=== PATIENT | male | born 1975 | race Caucasian/White ===

== ENCOUNTER 2019-09-16 16:45 | Emergency (ER) | payer OTHER ==
[~2019-09-16] VITALS: Ht 175.3 cm; Wt 85.0 kg
[2019-09-16] MEDS ORDERED: oxyCODONE/APAP 5/325 1 TAB TABLET PO ONE (17:45)
--- NOTE | 2019-09-16 17:53 | PHYS DOC ---
Past Medical History Past Medical History: No Pertinent History (GRACE MALONE DO) Past Surgical History: Tonsillectomy Additional Past Surgical Histo: RT SHOULDER, RT HEEL (GRACE MALONE DO) Smoking Status: Current Some Day Smoker Alcohol Use: Occasionally (GRACE MALONE DO) General Adult EDM: Chief Complaint: GROIN PAIN HPI: HPI: Patient is a 44-year-old male presents with right testicular pain. He states this been ongoing for 1 week. He denies promiscuous sex. He denies any urethral discharge. He states he can feel something very hard and painful surrounding his right testicle. He denies any fever chills or sweats. He denies any dysuria or gross hematuria. He denies any trauma to the testicle. [] (GRACE MALONE DO) Review of Systems: Review of Systems: Constitutional: Denies fever or chills. [] Eyes: Denies change in visual acuity. [] HENT: Denies nasal congestion or sore throat. [] Respiratory: Denies cough or shortness of breath. [] Cardiovascular: Denies chest pain or edema. [] GI: Denies abdominal pain, nausea, vomiting, bloody stools or diarrhea. [] : Per HPI. [] Musculoskeletal: Denies back pain or joint pain. [] Integument: Denies rash. [] Neurologic: Denies headache, focal weakness or sensory changes. [] Endocrine: Denies polyuria or polydipsia. [] Lymphatic: Denies swollen glands. [] Psychiatric: Denies depression or anxiety. [] (GRACE MALONE DO) Heart Score: Risk Factors: Risk Factors: DM, Current or recent (<one month) smoker, HTN, HLP, family history of CAD, obesity. Risk Scores: Score 0 - 3: 2.5% MACE over next 6 weeks - Discharge Home Score 4 - 6: 20.3% MACE over next 6 weeks - Admit for Clinical Observation Score 7 - 10: 72.7% MACE over next 6 weeks - Early Invasive Strategies (GRACE MALONE DO) Current Medications: Current Medications Medications (Trade) Dose Ordered Sig/Sid Start Time Stop Time Status Last Admin Dose Admin Levofloxacin (Levaquin) 500 mg 1X ONCE 09/16/19 17:45 09/16/19 17:46 DC Oxycodone/ Acetaminophen (Percocet 5/325) 2 tab 1X ONCE 09/16/19 17:45 09/16/19 17:46 DC (GRACE MALONE DO) Allergies: Allergies: Allergies Coded Allergies Type Severity Reaction Last Updated Verified No Known Drug Allergies 09/16/19 No (GRACE MALONE DO) Physical Exam: PE: Constitutional: Well developed, well nourished, moderate distress, non-toxic appearance. [] HENT: Normocephalic, atraumatic, bilateral external ears normal, oropharynx m oist, no oral exudates, nose normal. [] Eyes: PERRLA, EOMI, conjunctiva normal, no discharge. [] Neck: Normal range of motion, no tenderness, supple, no stridor. [] Cardiovascular:Heart rate regular rhythm, no murmur [] Lungs & Thorax: Bilateral breath sounds clear to auscultation [] Abdomen: Bowel sounds normal, soft, no tenderness, no masses, no pulsatile masses. : Right testicle is tender to palp epididymis in particular feels swollen and is tender [] Skin: Warm, dry, no erythema, no rash. [] Back: No tenderness, no CVA tenderness. [] Extremities: No tenderness, no cyanosis, no clubbing, ROM intact, no edema. [] Neurologic: Alert and oriented X 3, normal motor function, normal sensory f unction, no focal deficits noted. [] Psychologic: Affect normal, judgement normal, mood normal. [] (GRACE MALONE DO) Current Patient Data: Vital Signs: Vital Signs Date Time Temp Pulse Resp B/P (MAP) Pulse Ox O2 Delivery O2 Flow Rate FiO2 09/16/19 17:14 98.3 62 16 129/83 (98) 97 Room Air 98.3 (GRACE MALONE DO) EKG: EKG: [] (GARCE MALONE DO) Radiology/Procedures: Radiology/Procedures: [] (GRACE MALONE DO) Impression: PROCEDURE: TESTICULAR/SCROTUM TESTICULAR/SCROTUM: 09/16/2019 5:37 PM INDICATION: 44 years old Male. Reason: right testicular pain / Spl. Instructions: / History: . COMPARISON: None. FINDINGS: Right: Testicle: Normal in echotexture without focal lesion. Size: 4.3 x 2.9 x 2.6 cm. Flow: Normal color Doppler flow pattern. Epididymis: Enlarged and hyperemic. Right-sided epididymal cysts are identified, at least one of which demonstrates minimal complexity measuring 5 mm. Hydrocele: None. Varicocele: None. Left: Testicle: Normal in echotexture without focal lesion. Size: 4.4 x 3.0 x 2.6 cm. Flow: Normal color Doppler flow pattern. Epididymis: Normal in size and echotexture without focal lesion. Hydrocele: None. Varicocele: None. IMPRESSION: 1. Enlarged hyperemic right epididymis suggestive of epididymitis. 2. Perfusion noted in the testicles bilaterally at the time of imaging. 3. Right-sided epididymal cysts, one of which demonstrate internal debris. Electronically signed by: Cassidy Forrest MD (09/16/2019 7:27 PM) [facility] (LAWANDA FRANKS Jr., DO) Course & Med Decision Making: Course & Med Decision Making Pertinent Labs and Imaging studies reviewed. (See chart for details) [] (GRACE MALONE DO) Dragon Disclaimer: Dragon Disclaimer: This electronic medical record was generated, in whole or in part, using a voice recognition dictation system. (GRACE MALONE DO) Departure Departure Impression: Primary Impression: Epididymitis Disposition: 01 HOME, SELF-CARE Condition: STABLE Referrals: NO PCP (PCP) Patient Instructions: Epididymitis Scripts Oxycodone/Apap 5-325 (PERCOCET 5-325 MG TABLET ) 1 Each Tablet 1-2 EACH PO PRN TID PRN for PAIN, #20 TAB pain Prov: LAWANDA FRANKS Jr. DO 09/16/19 Ondansetron (ONDANSETRON ODT) 4 Mg Tab.rapdis 1 TAB PO PRN Q6-8HRS PRN for NAUSEA, #15 TAB Prov: LAWANDA FRANKS Jr. DO 09/16/19 Levofloxacin (LEVAQUIN) 500 Mg Tablet 1 TAB PO DAILY for 10 Days, #10 TAB 0 Refills Prov: LAWANDA FRANKS Jr. DO 09/16/19 Justicifation of Admission Dx: Justifications for Admission: Justification of Admission Dx: Comment: (Not applicable) (LAWANDA FRANKS Jr., DO) GRACE MALONE DO Sep 16, 2019 17:53 LAWANDA FRANKS Jr. Sep 16, 2019 19:45
[2019-09-16 17:55] LABS: BILIRUBIN,URINE NEGATIVE (NEG); CLARITY,URINE CLEAR; COLOR,URINE YELLOW; NITRITE,URINE NEGATIVE (NEG); PH,URINE 5.5 (<5.0-8.0); PROTEIN,URINE NEGATIVE (NEG-TRACE); UROBILINOGEN,URINE 0.2 mg/dL (0.2 mg/dL)
[2019-09-16 18:04] LABS: BACTERIA,URINE 0 /HPF (0-FEW); RBC,URINE 0 /HPF (0-2); SQUAMOUS EPITHELIAL CELL,UR OCC /LPF; WBC,URINE 0 /HPF (0-4)
[2019-09-16 19:29] VITALS: BP 119/70
--- NOTE | 2019-09-16 19:30 | RAD ---
TESTICULAR/SCROTUM: 09/16/2019 5:37 PM INDICATION: 44 years old Male. Reason: right testicular pain / Spl. Instructions: / History: . COMPARISON: None. FINDINGS: Right: Testicle: Normal in echotexture without focal lesion. Size: 4.3 x 2.9 x 2.6 cm. Flow: Normal color Doppler flow pattern. Epididymis: Enlarged and hyperemic. Right-sided epididymal cysts are identified, at least one of which demonstrates minimal complexity measuring 5 mm. Hydrocele: None. Varicocele: None. Left: Testicle: Normal in echotexture without focal lesion. Size: 4.4 x 3.0 x 2.6 cm. Flow: Normal color Doppler flow pattern. Epididymis: Normal in size and echotexture without focal lesion. Hydrocele: None. Varicocele: None. IMPRESSION: 1. Enlarged hyperemic right epididymis suggestive of epididymitis. 2. Perfusion noted in the testicles bilaterally at the time of imaging. 3. Right-sided epididymal cysts, one of which demonstrate internal debris. Electronically signed by: Cassidy Forrest MD (09/16/2019 7:27 PM) JAMES
[2019-09-16] MEDS ORDERED: OXYC1TAB15 PO (19:44)
[2019-09-16] MEDS ORDERED: ONDA4TAB12 PO (19:44)
[2019-09-16] MEDS ORDERED: LEVO500T59 PO (19:44)
== END 2019-09-16 20:24 | disposition home or self-care (01) ==
LOC: ER 16:45
DX: N45.1 Epididymitis (principal); F17.200 Nicotine dependence, unspecified, uncomplicated
CPT/HCPCS: 76870; 81001; 87491; 87591; 99285-25

== ENCOUNTER 2019-10-27 02:11 | Emergency (ER) | payer OTHER ==
[~2019-10-27] VITALS: Ht 175.3 cm; Wt 81.8 kg
[~2019-10-27 02:11] MED LIST: LEVO500T59 PO; ONDA4TAB12 PO; OXYC1TAB15 PO
--- NOTE | 2019-10-27 02:51 | PHYS DOC ---
Past Medical History Additional Past Medical Histor: Vertigo, epididimitis Past Surgical History: Tonsillectomy Additional Past Surgical Histo: RT SHOULDER, RT HEEL Smoking Status: Current Some Day Smoker Alcohol Use: Occasionally Drug Use: None General Adult EDM: Chief Complaint: DIZZY/LIGHT HEADED HPI: HPI: 44-year-old male presents with report of dizziness, headache, and nausea this been ongoing intermittently for the last 4 to 5 weeks. Patient reports history of prior vertigo and reports symptoms similar to before. Reports sensation that the room is spinning ". Patient does report history of diagnosis of epididymitis for which he was prescribed Levaquin. Patient had discussed the dizziness/ Review of Systems: Review of Systems: Constitutional: Denies fever or chills. [] Eyes: Denies change in visual acuity. [] HENT: Denies nasal congestion or sore throat. [] Respiratory: Denies cough or shortness of breath. [] Cardiovascular: Denies chest pain or edema. [] GI: Denies abdominal pain, nausea, vomiting, bloody stools or diarrhea. [] : Denies dysuria. [] Musculoskeletal: Denies back pain or joint pain. [] Integument: Denies rash. [] Neurologic: Denies headache, focal weakness or sensory changes. [] Endocrine: Denies polyuria or polydipsia. [] Lymphatic: Denies swollen glands. [] Psychiatric: Denies depression or anxiety. [] Heart Score: Risk Factors: Risk Factors: DM, Current or recent (<one month) smoker, HTN, HLP, family history of CAD, obesity. Risk Scores: Score 0 - 3: 2.5% MACE over next 6 weeks - Discharge Home Score 4 - 6: 20.3% MACE over next 6 weeks - Admit for Clinical Observation Score 7 - 10: 72.7% MACE over next 6 weeks - Early Invasive Strategies Allergies: Allergies: Allergies Coded Allergies Type Severity Reaction Last Updated Verified No Known Drug Allergies 09/16/19 No Physical Exam: PE: Constitutional: Well developed, well nourished, no acute distress, non-toxic appearance. [] HENT: Normocephalic, atraumatic, bilateral external ears normal, oropharynx moist, no oral exudates, nose normal. [] Eyes: PERRLA, EOMI, conjunctiva normal, no discharge. [] Neck: Normal range of motion, no tenderness, supple, no stridor. [] Cardiovascular:Heart rate regular rhythm, no murmur [] Lungs & Thorax: Bilateral breath sounds clear to auscultation [] Abdomen: Bowel sounds normal, soft, no tenderness, no masses, no pulsatile masses. [] Skin: Warm, dry, no erythema, no rash. [] Back: No tenderness, no CVA tenderness. [] Extremities: No tenderness, no cyanosis, no clubbing, ROM intact, no edema. [] Neurologic: Alert and oriented X 3, normal motor function, normal sensory function, no focal deficits noted. [] Psychologic: Affect normal, judgement normal, mood normal. [] EKG: EKG: @0239 Sinus bradycardia at 52bpm, NO ST elevation, QRS 100ms, QT/QTc 436/411ms, baseline artifact to I-aVF Radiology/Procedures: Radiology/Procedures: PROCEDURE: CT HEAD WO CONTRAST INDICATION: Reason: dizziness, SAYS FEEL PRESSURE IN HEAD TOO / Spl. Instructions: / History: COMPARISON: None. TECHNIQUE: Axial CT images obtained through the head without intravenous contrast. One or more of the following individualized dose reduction techniques were utilized for this examination: 1. Automated exposure control; 2. Adjustment of the mA and/or kV according to patient size; 3. Use of iterative reconstruction technique. FINDINGS: No intracranial hemorrhage. There is some relative hyperdensity deep to the calvarium bilaterally most likely secondary to artifact. No midline shift. Basal cisterns patent. Ventricles and sulci are unremarkable. No acute osseous abnormality. Orbits and paranasal sinuses unremarkable. IMPRESSION: * No acute intracranial hemorrhage. Electronically signed by: Isaac Mahoney MD (10/27/2019 3:42 AM) [id number] Course & Med Decision Making: Course & Med Decision Making Pertinent Labs and Imaging studies reviewed. (See chart for details) [] Dragon Disclaimer: Dragon Disclaimer: This electronic medical record was generated, in whole or in part, using a voice recognition dictation system. Departure Departure Impression: Primary Impression: Vertigo Disposition: 01 HOME, SELF-CARE Condition: STABLE Referrals: NO PCP (PCP) GERMAINE MAHONEY MD Patient Instructions: Vertigo, [id number] Scripts Meclizine Hcl (MECLIZINE HCL) 25 Mg Tablet 1 TAB PO PRN TID PRN for DIZZINESS, #20 TAB Prov: JAVY GILL DO 10/27/19 Prednisone (PREDNISONE) 20 Mg Tablet 2 TAB PO DAILY, #8 TAB Start this prescription tomorrow, Sunday10/28/19 Prov: JAVY GILL DO 10/27/19 Justicifation of Admission Dx: Justifications for Admission: Justification of Admission Dx: N/A JAVY GILL DO Oct 27, 2019 02:51
[2019-10-27 03:30] LABS: BASO % 1 % (0-3); EOS # 0.3 x10^3/uL (0.0-0.7); EOS % 4 % (0-3); HEMATOCRIT 42.4 % (39.0-53.0); HEMOGLOBIN 14.6 g/dL (13.0-17.5); LYMPH % 31 % (24-48); MEAN CORPUSCULAR HEMOGLOBIN 32 pg (25-35); MEAN CORPUSCULAR HGB CONC 34 g/dL (31-37); MEAN CORPUSCULAR VOLUME 94 fL (79-100); MONO # 0.7 x10^3/uL (0.0-1.1); MONO % 11 % (0-9); NEUT # 3.6 x10^3/uL (1.8-7.7); NEUT % 54 % (31-73); PLATELET COUNT 154 x10^3/uL (140-400); RED BLOOD COUNT 4.51 x10^6/uL (4.30-5.70); RED CELL DISTRIBUTION WIDTH 12.6 % (11.5-14.5); WHITE BLOOD COUNT 6.7 x10^3/uL (4.0-11.0)
[2019-10-27 03:30] LABS: BILIRUBIN,URINE NEGATIVE (NEG); CLARITY,URINE CLEAR; COLOR,URINE YELLOW; NITRITE,URINE NEGATIVE (NEG); PH,URINE 5.5 (<5.0-8.0); PROTEIN,URINE NEGATIVE (NEG-TRACE); UROBILINOGEN,URINE 0.2 mg/dL (0.2 mg/dL)
[2019-10-27] MEDS ORDERED: MECLIZINE HCL 12.5 MG TABLET. PO ONE (03:30)
[2019-10-27] MEDS ORDERED: IV NORMAL SALINE 1000ML BAG 1,000 ML IV ONE (03:30)
[2019-10-27] MEDS ORDERED: DEXAMETHASONE SOD PHOS 4 MG/ML VIAL IVP ONE (03:30)
[2019-10-27 03:37] LABS: CALCIUM 8.9 mg/dL (8.5-10.1); CREATININE 1.2 mg/dL (0.7-1.3); GFR 66.1
[2019-10-27 03:39] LABS: BACTERIA,URINE 0 /HPF (0-FEW); RBC,URINE 0 /HPF (0-2); SQUAMOUS EPITHELIAL CELL,UR OCC /LPF; WBC,URINE 0 /HPF (0-4)
[2019-10-27 03:43] LABS: ALBUMIN 3.5 g/dL (3.4-5.0); ALBUMIN/GLOBULIN RATIO 1.1 (1.0-1.7); MAGNESIUM 2.2 mg/dL (1.8-2.4); TOTAL BILIRUBIN 0.5 mg/dL (0.2-1.0); TOTAL PROTEIN 6.6 g/dL (6.4-8.2)
--- NOTE | 2019-10-27 03:45 | RAD ---
INDICATION: Reason: dizziness, SAYS FEEL PRESSURE IN HEAD TOO / Spl. Instructions: / History: COMPARISON: None. TECHNIQUE: Axial CT images obtained through the head without intravenous contrast. One or more of the following individualized dose reduction techniques were utilized for this examination: 1. Automated exposure control; 2. Adjustment of the mA and/or kV according to patient size; 3. Use of iterative reconstruction technique. FINDINGS: No intracranial hemorrhage. There is some relative hyperdensity deep to the calvarium bilaterally most likely secondary to artifact. No midline shift. Basal cisterns patent. Ventricles and sulci are unremarkable. No acute osseous abnormality. Orbits and paranasal sinuses unremarkable. IMPRESSION: * No acute intracranial hemorrhage. Electronically signed by: Isaac Mahoney MD (10/27/2019 3:42 AM) [id number]
[2019-10-27] MEDS ORDERED: MECL-75 PO (03:48)
[2019-10-27] MEDS ORDERED: PRED20TA PO (03:48)
[2019-10-27 03:56] VITALS: BP 129/81
--- NOTE | 2019-10-28 07:09 | EKG ---
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
== END 2019-10-27 03:58 | disposition home or self-care (01) ==
LOC: ER 02:11
DX: R42 Dizziness and giddiness (principal); R51 Headache; R20.0 Anesthesia of skin; F17.200 Nicotine dependence, unspecified, uncomplicated; Z90.89 Acquired absence of other organs; Z98.890 Other specified postprocedural states
CPT/HCPCS: 36415; 70450; 80053; 81001; 82553; 83735; 84484; 85025; 93005; 96361; 96374; 99285; J1100; J7030; J8597

== ENCOUNTER 2019-10-31 22:50 | Emergency (ER) | payer OTHER ==
[~2019-10-31] VITALS: Ht 172.7 cm; Wt 72.7 kg
[~2019-10-31 22:50] MED LIST changes: +MECL-75 PO; +PRED20TA PO
--- NOTE | 2019-10-31 23:59 | PHYS DOC ---
Past Medical History Additional Past Medical Histor: Vertigo, epididimitis Past Surgical History: Tonsillectomy Additional Past Surgical Histo: RT SHOULDER, RT HEEL Smoking Status: Current Some Day Smoker Alcohol Use: Occasionally Drug Use: None General Adult EDM: Chief Complaint: DIZZY/LIGHT HEADED HPI: HPI: Patient is a 44 year old male who presents with complaints of vertigo and "an acidic feeling in my body". The patient is a very pleasant 44-year-old male who has suffered from vertigo for many years. Recently he had a episode of e pididymitis which required an extended course of antibiotics. Unfortunately did seem to tear up his stomach at the time and that he had a lot of GI issues with the medication. He is off the medicine now reports that he has some discomfort in his epigastrium described as feeling like there is too much acid in it. It is nonradiating and is not associated with diarrhea, nausea or vomiting, melena or hematochezia. He denies fever, chills, sweats, chest pain or shortness of breath. He does complain of a headache however. His headache is unilateral, left-sided and associated with some neck pain. It is throbbing in nature and is been present for weeks. It is associated with the vertigo. He also associates some phonophobia with it and has had nausea in the past. Patient denies any focal neurological changes. He does complain of bilateral ear pain but denied any tinnitus. Review of Systems: Review of Systems: Constitutional: Denies fever or chills. [] Eyes: Denies change in visual acuity. [] HENT: Denies nasal congestion or sore throat. [] Respiratory: Denies cough or shortness of breath. [] Cardiovascular: Denies chest pain or edema. [] GI: See HPI. [] : Denies dysuria. [] Musculoskeletal: Denies back pain or joint pain. [] Integument: Denies rash. [] Neurologic: See HPI. [] Endocrine: Denies polyuria or polydipsia. [] Lymphatic: Denies swollen glands. [] Psychiatric: Denies depression or anxiety. [] Heart Score: Risk Factors: Risk Factors: DM, Current or recent (<one month) smoker, HTN, HLP, family history of CAD, obesity. Risk Scores: Score 0 - 3: 2.5% MACE over next 6 weeks - Discharge Home Score 4 - 6: 20.3% MACE over next 6 weeks - Admit for Clinical Observation Score 7 - 10: 72.7% MACE over next 6 weeks - Early Invasive Strategies Allergies: Allergies: Allergies Coded Allergies Type Severity Reaction Last Updated Verified No Known Drug Allergies 09/16/19 No Physical Exam: PE: Constitutional: Well developed, well nourished, no acute distress, non-toxic appearance. [] HENT: Normocephalic, atraumatic, bilateral external ears normal, oropharynx moist, no oral exudates, nose normal. [] Eyes: PERRLA, EOMI, conjunctiva normal, no discharge. [] Neck: Normal range of motion, no tenderness, supple, no stridor. [] Cardiovascular:Heart rate regular rhythm, no murmur [] Lungs & Thorax: Bilateral breath sounds clear to auscultation [] Abdomen: Bowel sounds normal, soft, no tenderness, no masses, no pulsatile masses. [] Skin: Warm, dry, no erythema, no rash. [] Back: No tenderness, no CVA tenderness. [] Extremities: No tenderness, no cyanosis, no clubbing, ROM intact, no edema. [] Neurologic: Alert and oriented X 3, normal motor function, normal sensory function, no focal deficits noted. [] Psychologic: Affect normal, judgement normal, mood normal. [] EKG: EKG: [] Radiology/Procedures: Radiology/Procedures: [] Course & Med Decision Making: Course & Med Decision Making Pertinent Labs and Imaging studies reviewed. (See chart for details) 0159-patient was seen and reevaluated on multiple occasions about his hospitalization here in the emergency department. Patient has improved and that he feels his stomach improved and that he is no longer having that discomfort as he had in the past. In addition he reports that his headache has resolved. He thinks the vertigo is essentially unchanged. I discussed with him the treat ment plan, reasons to return and need for follow-up. At this time no evidence of an exigent medical or surgical problems identified. [] Dragon Disclaimer: Dragon Disclaimer: This electronic medical record was generated, in whole or in part, using a voice recognition dictation system. Departure Departure Impression: Primary Impression: Peripheral vertigo Qualified Codes: H81.399 - Other peripheral vertigo, unspecified ear Additional Impressions: Common migraine with intractable migraine, so stated Acute gastritis without mention of hemorrhage Disposition: HOME, SELF-CARE Condition: IMPROVED Referrals: UNKNOWN PCP NAME (PCP) Patient Instructions: Gastritis, Adult, Migraine Headache Scripts Omeprazole (OMEPRAZOLE) 40 Mg Capsule.dr 40 MG PO DAILY for 30 Days, #30 CAP Take 1/2-hour before the first meal the day Prov: LUIS FELIPE MCKEON MD 11/01/19 Justicifation of Admission Dx: Justifications for Admission: Justification of Admission Dx: N/A LUIS FELIPE MCKEON MD Oct 31, 2019 23:59
[2019-11-01] MEDS ORDERED: IV NORMAL SALINE 500ML BAG 500 ML IV ONE (00:30)
[2019-11-01] MEDS ORDERED: METOCLOPRAMIDE HCL 10 MG/2 ML VIAL. IVP ONE (00:45)
[2019-11-01] MEDS ORDERED: diphenhydrAMINE 50 MG/ML VIAL IVP ONE (00:45)
[2019-11-01] MEDS ORDERED: MAGNESIUM SULFATE 1GM 100 ML IV ONE (00:45)
[2019-11-01] MEDS ORDERED: FAMOTIDINE 20 MG TABLET. PO ONE (00:45)
[2019-11-01] MEDS ORDERED: KETOROLAC 30 MG/ML VIAL. IVP ONE (00:45)
[2019-11-01] MEDS ORDERED: MAG HYDROX/ALUMINUM HYD/SIMETH 30 ML ORAL.SUSP PO ONE (00:45)
[2019-11-01] MEDS ORDERED: OMEP40CA45 PO (02:02)
[2019-11-01 02:36] VITALS: BP 111/66
== END 2019-11-01 02:26 | disposition home or self-care (01) ==
LOC: ER 22:50
DX: H81.399 Other peripheral vertigo, unspecified ear (principal); G43.019 Migraine without aura, intractable, without status migrainosus; K29.00 Acute gastritis without bleeding; F17.200 Nicotine dependence, unspecified, uncomplicated
CPT/HCPCS: 96365; 96375; 99285; J1200; J1885; J2765; J3475; J7040

== ENCOUNTER → 2019-11-10 | Outpatient (CLI) | payer OTHER ==
[2019-11-01 02:36] VITALS: BP 111/66
[~2019-11-10] MED LIST changes: +GADOTERATE 5 MMOL/10ML VIAL. IVP ONE; +OMEP40CA45 PO
--- NOTE | 2019-11-10 11:19 | KCIC ---
EXAM: Brain and internal auditory canal MRI with and without contrast. HISTORY: Vestibular symptoms. TECHNIQUE: Multiplanar, multisequence magnetic resonance imaging of the brain and internal auditory canals was performed prior to and following the administration of intravenous contrast. COMPARISON: Head CT dated 10/27/2019. FINDINGS: There is no restricted diffusion to suggest acute or subacute infarction. There is no susceptibility effect to suggest hemorrhage. There is no mass effect or midline shift. There is no hydrocephalus. There is a tiny focus of signal change on FLAIR images within the lateral right temporal lobe davis-white matter junction which is likely artifactual. There is no corresponding signal change on T2-weighted images. There are normal flow voids within the cerebral vessels. There is mild left frontal and ethmoid sinus because of thickening. The orbits and mastoid air cells are unremarkable. The cerebellopontine angles, internal auditory canals, membranous labyrinths, vestibulocochlear nerves and facial nerves are unremarkable. No suspicious enhancing lesion is seen. IMPRESSION: No acute intracranial finding or abnormal finding involving the internal auditory canals. Electronically signed by: Maria E Brennan MD (11/10/2019 11:16 AM) [id number]
== END | disposition home or self-care (01) ==
LOC: KCIC MRI 09:46
PROVIDERS: ATTEND Family Medicine
DX: H81.92 Unspecified disorder of vestibular function, left ear (principal)
CPT/HCPCS: 70553; A9575

== ENCOUNTER 2019-12-16 14:54 | Emergency (ER) | payer OTHER ==
[~2019-12-16] VITALS: Ht 175.3 cm; Wt 84.0 kg
[~2019-12-16 14:54] MED LIST changes: -GADOTERATE 5 MMOL/10ML VIAL. IVP ONE
[2019-12-16 15:42] LABS: BASO # 0.1 x10^3/uL (0.0-0.2); BASO % 1 % (0-3); EOS # 0.2 x10^3/uL (0.0-0.7); EOS % 3 % (0-3); HEMATOCRIT 41.7 % (39.0-53.0); HEMOGLOBIN 14.8 g/dL (13.0-17.5); LYMPH # 2.3 x10^3/uL (1.0-4.8); LYMPH % 28 % (24-48); MEAN CORPUSCULAR HEMOGLOBIN 33 pg (25-35); MEAN CORPUSCULAR HGB CONC 35 g/dL (31-37); MEAN CORPUSCULAR VOLUME 93 fL (79-100); MONO # 0.7 x10^3/uL (0.0-1.1); MONO % 9 % (0-9); NEUT % 60 % (31-73); PLATELET COUNT 152 x10^3/uL (140-400); RED BLOOD COUNT 4.51 x10^6/uL (4.30-5.70); RED CELL DISTRIBUTION WIDTH 12.8 % (11.5-14.5); WHITE BLOOD COUNT 8.2 x10^3/uL (4.0-11.0)
[2019-12-16 15:50] LABS: PROTHROMBIN TIME PATIENT 11.9 SEC (11.7-14.0)
--- NOTE | 2019-12-16 15:52 | RAD ---
PORTABLE CHEST 1V 12/16/2019 3:22 PM INDICATION: Chest pain COMPARISON: None available TECHNIQUE: Portable frontal view of the chest is provided. FINDINGS: The cardiomediastinal silhouette is within normal limits. Lungs are clear. There are no significant pleural effusions. There is no pulmonary vascular congestion. No pneumothorax. No suspicious osseous abnormality. IMPRESSION: There is no acute cardiopulmonary process. Electronically signed by: Cassidy Forrest MD (12/16/2019 3:48 PM) [id number]
[2019-12-16 15:54] LABS: CALCIUM 9.1 mg/dL (8.5-10.1); GFR 81.6; POTASSIUM 3.9 mmol/L (3.5-5.1)
[2019-12-16 16:00] LABS: ALBUMIN 3.9 g/dL (3.4-5.0); ALBUMIN/GLOBULIN RATIO 1.4 (1.0-1.7); MAGNESIUM 2.2 mg/dL (1.8-2.4); TOTAL BILIRUBIN 0.3 mg/dL (0.2-1.0); TOTAL PROTEIN 6.7 g/dL (6.4-8.2)
[2019-12-16 16:45] LABS: BILIRUBIN,URINE NEGATIVE (NEG); CLARITY,URINE CLEAR; COLOR,URINE YELLOW; NITRITE,URINE NEGATIVE (NEG); PROTEIN,URINE NEGATIVE (NEG-TRACE); UROBILINOGEN,URINE 0.2 mg/dL (0.2 mg/dL)
[2019-12-16 16:50] LABS: BACTERIA,URINE 0 /HPF (0-FEW); RBC,URINE 0 /HPF (0-2); WBC,URINE 0 /HPF (0-4)
[2019-12-16] MEDS ORDERED: IOHEXOL 350 MG/ML 100 ML VIAL. IV ONE (17:00)
--- NOTE | 2019-12-16 17:33 | RAD ---
CT angiography chest with contrast PQRS statement: CT scans at this facility use dose reduction including either automated exposure control, iterative reconstructions, and /or weight based radiation dosing via mA and kV modification when appropriate to reduce radiation dose to as low as reasonably achievable. TECHNIQUE: CT imaging the chest with 3-D MIP reconstructions of the pulmonary arteries with 100 mL Omnipaque 350 intravenous contrast. HISTORY: Chest pain shortness of breath. FINDINGS: Heart size is normal. Aorta and esophagus are unremarkable. No pulmonary artery emboli. No adenopathy in the chest. Trachea and bronchi are unremarkable. Right upper lobe medial subpleural 3 mm solid nodule image 56. Small calcified granuloma right lung apex. 2 mm right lower lobe nodule image 142. No pulmonary opacities. No pleural effusions. Bones are unremarkable. IMPRESSION: 1. No acute process. No pulmonary artery emboli. 2. Small solid pulmonary nodules largest measuring 3 mm. Per Fleischner guidelines if there are risk factors for malignancy optional CT follow-up in 12 months would be advised, otherwise no follow-up is necessary. Electronically signed by: Reji Clark MD (12/16/2019 5:31 PM) [id number]
--- NOTE | 2019-12-16 17:42 | PHYS DOC ---
Past Medical History Past Medical History: Other Additional Past Medical Histor: Vertigo, epididimitis Past Surgical History: Tonsillectomy Additional Past Surgical Histo: RT SHOULDER, RT HEEL Smoking Status: Current Every Day Smoker Alcohol Use: Occasionally Drug Use: None General Adult EDM: Chief Complaint: CHEST PAIN HPI: HPI: Patient is a 44 year old male who presented to ER today for evaluation of left side upper shoulder and left scapular pain that been going on for 2 weeks. Patient said he carried a heavy back on the left side. Patient said the pain become more intense today so he came here for evaluation. Patient denies any trouble breathing, denies any history of blood clot disorder, denies any history of diabetic or hypertension or any history of coronary disease. Patient denies any family history of heart disease. Patient denies any cough or fever. Patient is a smoker occasionally. Patient denies any recent travel or operation. Review of Systems: Review of Systems: Constitutional: Denies fever or chills. [] Eyes: Denies change in visual acuity. [] HENT: Denies nasal congestion or sore throat. [] Respiratory: Denies cough or shortness of breath. [] Cardiovascular: Positive for chest pain , no edema. [] GI: Denies abdominal pain, nausea, vomiting, bloody stools or diarrhea. [] : Denies dysuria. [] Musculoskeletal: POSITIVE FOR LEFT SIDE SCAPULAR PAIN, LEFT SIDE UPPER CHEST PAIN Neurologic: Denies headache, focal weakness or sensory changes. [] Endocrine: Denies polyuria or polydipsia. [] Lymphatic: Denies swollen glands. [] Psychiatric: Denies depression or anxiety. [] Heart Score: HEART Score for Chest Pain: HEART Score for Chest Pain Response (Comments) Value History Slighlty/Non-Suspicious 0 ECG Normal 0 Age < 45 0 Risk Factors 1 or 2 Risk Factors 1 Troponin < Normal Limit 0 Total 1 Risk Factors: Risk Factors: DM, Current or recent (<one month) smoker, HTN, HLP, family history of CAD, obesity. Risk Scores: Score 0 - 3: 2.5% MACE over next 6 weeks - Discharge Home Score 4 - 6: 20.3% MACE over next 6 weeks - Admit for Clinical Observation Score 7 - 10: 72.7% MACE over next 6 weeks - Early Invasive Strategies Current Medications: Current Medications Medications (Trade) Dose Ordered Sig/Sid Start Time Stop Time Status Last Admin Dose Admin Iohexol (Omnipaque 350 Mg/ml) 100 ml 1X ONCE 12/16/19 17:00 12/16/19 17:01 DC 12/16/19 17:20 100 ML Allergies: Allergies: Allergies Coded Allergies Type Severity Reaction Last Updated Verified No Known Drug Allergies 09/16/19 No Physical Exam: PE: Constitutional: Well developed, well nourished, no acute distress, non-toxic appearance. [] HENT: Normocephalic, atraumatic, bilateral external ears normal, oropharynx moist, no oral exudates, nose normal. [] Eyes: PERRLA, EOMI, conjunctiva normal, no discharge. [] Neck: Normal range of motion, no tenderness, supple, no stridor. [] Cardiovascular:Heart rate regular rhythm, no murmur [] Lungs & Thorax: Bilateral breath sounds clear to auscultation [] Abdomen: Bowel sounds normal, soft, no tenderness, no masses, no pulsatile masses. [] Skin: Warm, dry, no erythema, no rash. [] Back: No tenderness, no CVA tenderness. [] Extremities: No tenderness, no cyanosis, no clubbing, ROM intact, no edema. [] Neurologic: Alert and oriented X 3, normal motor function, normal sensory function, no focal deficits noted. [] Psychologic: Affect normal, judgement normal, mood normal. [] Current Patient Data: Labs: Laboratory Tests Test 12/16/19 15:32 12/16/19 16:35 White Blood Count 8.2 x10^3/uL (4.0-11.0) Red Blood Count 4.51 x10^6/uL (4.30-5.70) Hemoglobin 14.8 g/dL (13.0-17.5) Hematocrit 41.7 % (39.0-53.0) Mean Corpuscular Volume 93 fL (79-100) Mean Corpuscular Hemoglobin 33 pg (25-35) Mean Corpuscular Hemoglobin Concent 35 g/dL (31-37) Red Cell Distribution Width 12.8 % (11.5-14.5) Platelet Count 152 x10^3/uL (140-400) Neutrophils (%) (Auto) 60 % (31-73) Lymphocytes (%) (Auto) 28 % (24-48) Monocytes (%) (Auto) 9 % (0-9) Eosinophils (%) (Auto) 3 % (0-3) Basophils (%) (Auto) 1 % (0-3) Neutrophils # (Auto) 5.0 x10^3/uL (1.8-7.7) Lymphocytes # (Auto) 2.3 x10^3/uL (1.0-4.8) Monocytes # (Auto) 0.7 x10^3/uL (0.0-1.1) Eosinophils # (Auto) 0.2 x10^3/uL (0.0-0.7) Basophils # (Auto) 0.1 x10^3/uL (0.0-0.2) Prothrombin Time 11.9 SEC (11.7-14.0) Prothrombin Time INR 0.9 (0.8-1.1) Sodium Level 143 mmol/L (136-145) Potassium Level 3.9 mmol/L (3.5-5.1) Chloride Level 104 mmol/L (98-107) Carbon Dioxide Level 30 mmol/L (21-32) Anion Gap 9 (6-14) Blood Urea Nitrogen 16 mg/dL (8-26) Creatinine 1.0 mg/dL (0.7-1.3) Estimated GFR (Cockcroft-Gault) 81.6 BUN/Creatinine Ratio 16 (6-20) Glucose Level 123 mg/dL (70-99) H Calcium Level 9.1 mg/dL (8.5-10.1) Magnesium Level 2.2 mg/dL (1.8-2.4) Total Bilirubin 0.3 mg/dL (0.2-1.0) Aspartate Amino Transferase (AST) 23 U/L (15-37) Alanine Aminotransferase (ALT) 42 U/L (16-63) Alkaline Phosphatase 63 U/L (46-116) Troponin I Quantitative < 0.017 ng/mL (0.000-0.055) GJ-Hub-J-Type Natriuretic Peptide 32 pg/mL (0-124) Total Protein 6.7 g/dL (6.4-8.2) Albumin 3.9 g/dL (3.4-5.0) Albumin/Globulin Ratio 1.4 (1.0-1.7) Lipase 135 U/L (73-393) Urine Collection Type Unknown Urine Color Yellow Urine Clarity Clear Urine pH 6.0 (<5.0-8.0) Urine Specific [place] <=1.005 (1.000-1.030) Urine Protein Negative mg/dL (NEG-TRACE) Urine Glucose (UA) Negative mg/dL (NEG) Urine Ketones (Stick) Negative mg/dL (NEG) Urine Blood Negative (NEG) Urine Nitrite Negative (NEG) Urine Bilirubin Negative (NEG) Urine Urobilinogen Dipstick 0.2 mg/dL (0.2 mg/dL) Urine Leukocyte Esterase Negative (NEG) Urine RBC 0 /HPF (0-2) Urine WBC 0 /HPF (0-4) Urine Bacteria 0 /HPF (0-FEW) Laboratory Tests 12/16/19 15:32 Laboratory Tests 12/16/19 15:32 Vital Signs: Vital Signs Date Time Temp Pulse Resp B/P (MAP) Pulse Ox O2 Delivery O2 Flow Rate FiO2 12/16/19 15:02 97.4 85 16 153/93 (113) 99 Room Air 97.4 EKG: EKG: EKG was done 1502, heart rate of 81 bpm, sinus rhythm, no ST segment ovation, normal axis Radiology/Procedures: Radiology/Procedures: [][facility] [address] [place], [place] [id number] IMAGING REPORT Signed PATIENT: RAJESH ELLIS ACCOUNT: [id number] : 1975 LOCATION: ER AGE: 44 SEX: M EXAM STATUS: REG ER ORD. PHYSICIAN: GODWIN KATHLEEN DO REASON: chest pain, soa PROCEDURE: CT ANGIOGRAPHY CHEST CT angiography chest with contrast PQRS statement: CT scans at this facility use dose reduction including either automated exposure control, iterative reconstructions, and /or weight based radiation dosing via mA and kV modification when appropriate to reduce radiation dose to as low as reasonably achievable. TECHNIQUE: CT imaging the chest with 3-D MIP reconstructions of the pulmonary arteries with 100 mL Omnipaque 350 intravenous contrast. HISTORY: Chest pain shortness of breath. FINDINGS: Heart size is normal. Aorta and esophagus are unremarkable. No pulmonary artery emboli. No adenopathy in the chest. Trachea and bronchi are unremarkable. Right upper lobe medial subpleural 3 mm solid nodule image 56. Small calcified granuloma right lung apex. 2 mm right lower lobe nodule image 142. No pulmonary opacities. No pleural effusions. Bones are unremarkable. IMPRESSION: 1. No acute process. No pulmonary artery emboli. 2. Small solid pulmonary nodules largest measuring 3 mm. Per Fleischner guidelines if there are risk factors for malignancy optional CT follow-up in 12 months would be advised, otherwise no follow-up is necessary. Electronically signed by: Jc Clark MD (12/16/2019 5:31 PM) [id number] DICTATED and SIGNED BY: JC CLARK MD DATE: 12/16/19 1731 Course & Med Decision Making: Course & Med Decision Making Pertinent Labs and Imaging studies reviewed. (See chart for details) Patient is a 44-year-old male who presented with left-sided chest pain for 2 weeks. Work-up did not find any acute problem. Patient had low risk for having coronary artery disease. We will discharge him home, he is scheduled to see his family doctor tomorrow. Chest pain is musculoskeletal in nature Dragon Disclaimer: Dragon Disclaimer: This electronic medical record was generated, in whole or in part, using a voice recognition dictation system. Departure Departure Impression: Primary Impression: Chest pain Disposition: 01 HOME, SELF-CARE Condition: STABLE Referrals: SEBAS BLOOM (PCP) follow up with your doctor tomorrow. Patient Instructions: Chest Pain (Nonspecific) Additional Instructions: Thank you for visiting our Emergency Department. We appreciate you trusting us with your care. If any additional problems come up don't hesitate to return to visit us. Please follow up with your primary care provider so they can plan additional care if needed and know about the problem that you had. If symptoms worsen come back to the Emergency Department. Any concerning symptoms that start such as chest pain, shortness of air, weakness or numbness on one side of the body, running high fevers or any other concerning symptoms return to the ER. Justicifation of Admission Dx: Justifications for Admission: Justification of Admission Dx: N/A GODWIN KATHLEEN DO Dec 16, 2019 17:42
[2019-12-16 18:23] VITALS: BP 131/85
--- NOTE | 2019-12-16 18:37 | EKG ---
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
== END 2019-12-16 18:49 | disposition home or self-care (01) ==
LOC: ER 14:54
DX: R07.89 Other chest pain (principal); M25.512 Pain in left shoulder; F17.200 Nicotine dependence, unspecified, uncomplicated; Z90.89 Acquired absence of other organs; Z98.890 Other specified postprocedural states
CPT/HCPCS: 36415; 71045; 71275; 80053; 81001; 83690; 83735; 83880; 84484; 85025; 85610; 93005; 99285; Q9967

== ENCOUNTER 2020-05-02 08:50 | Emergency (ER) | payer OTHER ==
[~2020-05-02] VITALS: Ht 175.3 cm; Wt 84.1 kg
[~2020-05-02 08:50] MED LIST changes: -OMEP40CA45 PO; +OMEP40CA7 PO
[2020-05-02 08:57] VITALS: BP 120/76
--- NOTE | 2020-05-02 09:32 | RAD ---
EXAM: XR ELBOW COMPLETE_LEFT 3+VIEWS 05/02/2020 9:17 AM CLINICAL INDICATION: Left elbow injury after lifting a heavy table COMPARISON: None TECHNIQUE: 4 views of the left elbow FINDINGS: No acute fracture. Alignment is normal. Joint spaces are maintained. There is a small olec ranon enthesophyte the is slightly displaced but not retracted. This is favored to be chronic as ther e is no surrounding soft tissue abnormality. No joint effusion. IMPRESSION: No acute osseous abnormality. Electronically signed by: Katrina Davies MD (05/02/2020 9:29 AM) [id number]
--- NOTE | 2020-05-02 09:51 | PHYS DOC ---
Past Medical History Past Medical History: Other Additional Past Medical Histor: Vertigo, epididimitis Past Surgical History: Tonsillectomy Additional Past Surgical Histo: RT SHOULDER, RT HEEL Smoking Status: Former Smoker Alcohol Use: Occasionally Drug Use: None General Adult EDM: Chief Complaint: UPPER EXTREMITY PAIN HPI: HPI: Patient is a 44 year old male who came to ER for evaluation of left elbow pain since yesterday after a lift a heavy table. Patient said while he was lifting a heavy table in his kitchen, he felt a pop in his left elbow, and he has had pain ever since. He still has full range of motion of his left elbow but it is very painful when he tries to extend or flex the left elbow. Patient denies any numbness or weakness in his left upper extremity. Review of Systems: Review of Systems: Constitutional: Denies fever or chills. [] Eyes: Denies change in visual acuity. [] HENT: Denies nasal congestion or sore throat. [] Respiratory: Denies cough or shortness of breath. [] Cardiovascular: Denies chest pain or edema. [] GI: Denies abdominal pain, nausea, vomiting, bloody stools or diarrhea. [] : Denies dysuria. [] Musculoskeletal: Positive for left elbow pain. Neurologic: Denies headache, focal weakness or sensory changes. [] Endocrine: Denies polyuria or polydipsia. [] Lymphatic: Denies swollen glands. [] Psychiatric: Denies depression or anxiety. [] Heart Score: Risk Factors: Risk Factors: DM, Current or recent (<one month) smoker, HTN, HLP, family history of CAD, obesity. Risk Scores: Score 0 - 3: 2.5% MACE over next 6 weeks - Discharge Home Score 4 - 6: 20.3% MACE over next 6 weeks - Admit for Clinical Observation Score 7 - 10: 72.7% MACE over next 6 weeks - Early Invasive Strategies Allergies: Allergies: Allergies Coded Allergies Type Severity Reaction Last Updated Verified No Known Drug Allergies 09/16/19 No Physical Exam: PE: Constitutional: Well developed, well nourished, no acute distress, non-toxic appearance. [] HENT: Normocephalic, atraumatic, bilateral external ears normal, oropharynx moist, no oral exudates, nose normal. [] Eyes: PERRLA, EOMI, conjunctiva normal, no discharge. [] Neck: Normal range of motion, no tenderness, supple, no stridor. [] Cardiovascular:Heart rate regular rhythm, no murmur [] Lungs & Thorax: Bilateral breath sounds clear to auscultation [] Abdomen: Bowel sounds normal, soft, no tenderness, no masses, no pulsatile masses. [] Skin: Warm, dry, no erythema, no rash. [] Back: No tenderness, no CVA tenderness. [] Extremities: There is no swelling or edema of the left elbow, there is tenderness to palpation on the back of his left elbow. There is no obvious tr iceps by bicep tendon deformity. Patient can extend extend and flex his left elbow with pain. No focal neurological deficit. Neurologic: Alert and oriented X 3, normal motor function, normal sensory function, no focal deficits noted. [] Psychologic: Affect normal, judgement normal, mood normal. [] Current Patient Data: Vital Signs: Vital Signs Date Time Temp Pulse Resp B/P (MAP) Pulse Ox O2 Delivery O2 Flow Rate FiO2 05/02/20 08:57 98.2 77 16 120/76 (91) 95 Room Air 98.2 EKG: EKG: [] Radiology/Procedures: Radiology/Procedures: [facility] [address] [place], [place] [id number] IMAGING REPORT Signed PATIENT: RAJESH ELLIS ACCOUNT: [id number] : 1975 LOCATION: ER AGE: 44 SEX: M EXAM STATUS: REG ER ORD. PHYSICIAN: GODWIN KATHLEEN DO REASON: left elbow injured after lifting a heavy table PROCEDURE: ELBOW LEFT 3V EXAM: XR ELBOW COMPLETE_LEFT 3+VIEWS 05/02/2020 9:17 AM CLINICAL INDICATION: Left elbow injury after lifting a heavy table COMPARISON: None TECHNIQUE: 4 views of the left elbow FINDINGS: No acute fracture. Alignment is normal. Joint spaces are maintained. There is a small olecranon enthesophyte the is slightly displaced but not retracted. This is favored to be chronic as there is no surrounding soft tissue abnormality. No joint effusion. IMPRESSION: No acute osseous abnormality. Electronically signed by: Katrnia Davies MD (05/02/2020 9:29 AM) [id number] DICTATED and SIGNED BY: KATRINA DAVIES MD DATE: 05/02/20 [id number] Course & Med Decision Making: Course & Med Decision Making Pertinent Labs and Imaging studies reviewed. (See chart for details) Patient is a 44-year-old male who injured his left elbow by lifting heavy table at home, x-ray did not show fracture or dislocation however x-ray did not be modality to study for tendon or muscle injury. Patient was playing left arm sling, he will need to follow-up with his family physician for outpatient evaluation with MRI his left elbow. Patient is amenable to plan of care. Dragon Disclaimer: Dragon Disclaimer: This electronic medical record was generated, in whole or in part, using a voice recognition dictation system. Departure Departure Impression: Primary Impression: Sprain of left elbow Disposition: 01 DC HOME SELF CARE/HOMELESS Condition: STABLE Referrals: SEBAS BLOOM (PCP) Follow up with your family doctor for outpatient evaluation of your injured elbow with MRI NEXT WEEK. Patient Instructions: Brachialis or Anterior Capsular Elbow Strain with Rehab- Sports[facility], Elbow Injury Additional Instructions: Thank you for visiting our Emergency Department. We appreciate you trusting us with your care. If any additional problems come up don't hesitate to return to visit us. Please follow up with your primary care provider so they can plan add itional care if needed and know about the problem that you had. If symptoms worsen come back to the Emergency Department. Any concerning symptoms that start such as chest pain, shortness of air, weakness or numbness on one side of the body, running high fevers or any other concerning symptoms return to the ER. GODWIN KATHLEEN DO May 02, 2020 09:51
== END 2020-05-02 09:58 | disposition home or self-care (01) ==
LOC: ER 08:50
DX: S53.492A Other sprain of left elbow, initial encounter (principal); M25.522 Pain in left elbow; Z87.891 Personal history of nicotine dependence; Z90.89 Acquired absence of other organs; Z98.890 Other specified postprocedural states; X50.0XXA Overexertion from strenuous movement or load, initial encounter; Y93.89 Activity, other specified; Y92.89 Other specified places as the place of occurrence of the external cause; Y99.8 Other external cause status
CPT/HCPCS: 73080; 99283; A4565